=== PATIENT | female | born 1965 | race Caucasian/White ===

== ENCOUNTER → 2021-01-24 10:19 | Outpatient (BNVA) | payer OTHER, SELFPAY | PROVIDERS: Visit Provider Physician Assistant Medical | DX: S61.052A Open bite of left thumb without damage to nail, initial encounter (principal); L03.012 Cellulitis of left finger; W50.3XXA Accidental bite by another person, initial encounter | CPT/HCPCS: 36415; 86706; 90715; 99203 ==

== ENCOUNTER → 2021-01-26 13:25 | Outpatient (BNVA) | payer OTHER, SELFPAY | PROVIDERS: Visit Provider Physician Assistant Medical | DX: S60.372A Other superficial bite of left thumb, initial encounter (principal); W50.3XXA Accidental bite by another person, initial encounter | CPT/HCPCS: 99213 ==

== ENCOUNTER → 2021-02-02 09:34 | Outpatient (BNVA) | payer OTHER, SELFPAY | PROVIDERS: Visit Provider Physician Assistant Medical | DX: S61.052D Open bite of left thumb without damage to nail, subsequent encounter (principal); W50.3XXD Accidental bite by another person, subsequent encounter; Z23 Encounter for immunization | CPT/HCPCS: 90746; 99213 ==

== ENCOUNTER → 2021-03-12 09:21 | Outpatient (BNVA) | payer OTHER, SELFPAY | DX: Z23 Encounter for immunization (principal) | CPT/HCPCS: 90746 ==

== ENCOUNTER → 2021-08-14 08:52 | Outpatient (BNVA) | payer OTHER, SELFPAY | DX: T14.8XXD Other injury of unspecified body region, subsequent encounter (principal); W50.3XXD Accidental bite by another person, subsequent encounter; Z23 Encounter for immunization | CPT/HCPCS: 99211 ==